=== PATIENT | male | born 1995 | race Caucasian/White ===

== ENCOUNTER 2016-12-22 22:39 | Emergency (ER) | payer SELFPAY ==
[2016-12-23 01:10] VITALS: BP 120/65
== END 2016-12-23 01:10 | disposition home or self-care (01) ==
LOC: ED 22:39
DX: L02.416 Cutaneous abscess of left lower limb (principal); S70.362A Insect bite (nonvenomous), left thigh, initial encounter; W57.XXXA Bitten or stung by nonvenomous insect and other nonvenomous arthropods, initial encounter; Y93.9 Activity, unspecified; Y92.89 Other specified places as the place of occurrence of the external cause; Y99.8 Other external cause status
CPT/HCPCS: 90715; J0690; J2001

== ENCOUNTER 2016-12-23 16:19 | Emergency (ER) | payer SELFPAY | END 2016-12-23 19:32 | disposition left against medical advice (07) | LOC: ED 16:19 | DX: Z53.21 Procedure and treatment not carried out due to patient leaving prior to being seen by health care provider (principal) ==

== ENCOUNTER 2016-12-23 20:43 | Emergency (ER) | payer MEDICAID ==
[2016-12-23 22:24] VITALS: BP 135/77
== END 2016-12-23 22:24 | disposition home or self-care (01) ==
LOC: ED 20:43
DX: L02.416 Cutaneous abscess of left lower limb (principal)
CPT/HCPCS: J2001

== ENCOUNTER 2016-12-24 07:14 | Emergency (ER) | payer MEDICAID ==
[2016-12-24 07:18] VITALS: BP 132/88
== END 2016-12-24 08:15 | disposition home or self-care (01) ==
LOC: ED 07:14
DX: Z48.01 Encounter for change or removal of surgical wound dressing (principal); M25.551 Pain in right hip; J45.909 Unspecified asthma, uncomplicated

== ENCOUNTER 2017-01-04 20:34 | Emergency (ER) | payer OTHER | END 2017-01-04 21:37 | disposition other institution (70) | LOC: ED 20:34 | DX: Z02.89 Encounter for other administrative examinations (principal) ==

== ENCOUNTER 2017-01-04 20:34 | Emergency (ER) | payer MEDICAID ==
[2017-01-04 21:29] VITALS: BP 114/67
== END 2017-01-04 21:37 | disposition other institution (70) ==
LOC: ED 20:34
DX: L02.416 Cutaneous abscess of left lower limb (principal)
CPT/HCPCS: J2001

== ENCOUNTER 2017-01-25 20:13 | Emergency (ER) | payer SELFPAY ==
[~2017-01-25] VITALS: Ht 165.1 cm; Wt 51.4 kg
[2017-01-25 21:02] VITALS: BP 126/71
== END 2017-01-25 21:02 | disposition left against medical advice (07) ==
LOC: ED 20:13
DX: Z53.21 Procedure and treatment not carried out due to patient leaving prior to being seen by health care provider (principal)

== ENCOUNTER 2017-01-27 17:17 | Emergency (ER) | payer MEDICAID | END 2017-01-27 18:18 | disposition left against medical advice (07) | LOC: ED 17:17 | DX: Z53.21 Procedure and treatment not carried out due to patient leaving prior to being seen by health care provider (principal) ==

== ENCOUNTER 2017-01-28 14:52 | Emergency (ER) | payer MEDICAID ==
[2017-01-28 15:05] VITALS: BP 127/83
== END 2017-01-28 16:06 | disposition home or self-care (01) ==
LOC: ED 14:52
DX: L89.229 Pressure ulcer of left hip, unspecified stage (principal); Z88.0 Allergy status to penicillin